=== PATIENT | male | born 1965 | race Caucasian/White ===

== ENCOUNTER 2021-01-23 08:24 | Emergency (ER) | payer MEDICARE ==
[~2021-01-23] VITALS: Ht 182.9 cm; Wt 138.0 kg
[2021-01-23] MEDS ORDERED: SODIUM CHLORIDE 0.9% 1,000ML IVBOLUS ONE (08:30)
[2021-01-23 08:48] LABS: BASOPHILS % (AUTO) 1 % (0-1); EOSINOPHILS % (AUTO) 2 % (1-7); LYMPHOCYTES % (AUTO) 16 % (22-44); MEAN CORPUSCULAR HEMOGLOBIN 27.2 pg (27.5-34.5); MEAN CORPUSCULAR HGB CONC 32.9 g/dL (33.2-36.2); MEAN PLATELET VOLUME 9.7 fL (7.4-10.4); MONOCYTES % (AUTO) 9 % (2-9); NEUTROPHILS % (AUTO) 74 % (42-75); PLATELET COUNT 218 x10^3/uL (130-400); RED BLOOD COUNT 5.54 x10^6/uL (4.38-5.82); RED CELL DISTRIBUTION WIDTH 15.8 % (9.4-14.8)
[2021-01-23 08:50] LABS: MD NO
[2021-01-23] MEDS ORDERED: PLEASE ENTER ALLERGIES MC SCH (09:00)
[2021-01-23 09:01] LABS: ALANINE AMINOTRANSFERASE 65 U/L (12-78); ALBUMIN 3.8 g/dL (3.4-5.0); ANION GAP 7 mmol/L (5-15); CALCIUM 8.7 mg/dL (8.5-10.1); CHLORIDE 104 mmol/L (98-107)
[2021-01-23 09:02] LABS: SALICYLATE LEVEL < 1.7 mg/dL (2.8-20.0)
--- NOTE | 2021-01-23 09:02 | NUR ---
PT CONVERSES BUT DROWSY AND FALLS ASLEEP FREQUENTLY. PLACED ON OXYGEN. WILL CONTINUE TO MONITOR
[2021-01-23 09:05] LABS: ALKALINE PHOSPHATASE 118 U/L (45-117); BILIRUBIN,TOTAL 0.6 mg/dL (0.2-1.0); TOTAL PROTEIN 8.5 g/dL (6.4-8.2)
--- NOTE | 2021-01-23 09:12 | NUR ---
PT REMAINS DROWSY BUT AROUSABLE. IV FLUIDS INFUSING. CONTINUE TO MONITOR.
--- NOTE | 2021-01-23 09:42 | NUR ---
REMAINS DROWSY. SLEEPING WITH NECK BENT FORWARD BUT MAINTAINING AIRWAY. WILL CONTINUE TO MONITOR
--- NOTE | 2021-01-23 10:00 | NUR ---
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 PT REMOVED BP CUFF. PT STATES "NO ONE IS BRINGING ME ANYTHING TO DRINK" DISCUSSED THAT MD MAY NOT WANT HIM TO HAVE ANYTHING TO DRINK AT THIS TIME. PT RETURNED TO [facility] WITHOUT INCIDENCE.
--- NOTE | 2021-01-23 10:45 | NUR ---
PT UOB WITH ASSISTANCE AND USED URINAL TO GIVE SAMPLE. PT LESS DROWSY AT THIS TIME. WILL CONTINUE TO MONITOR
[2021-01-23 11:00] VITALS: BP 130/84
--- NOTE | 2021-01-23 11:18 | NUR ---
WHEN PT FALLS BACK TO SLEEP OXYGEN SATURATION DROPS. WITHOUT OXYGEN DROPS TO 86 PERCENT. PROVIDER MADE AWARE AND PLACED BACK ON OXYGEN
--- NOTE | 2021-01-23 13:00 | NUR ---
PT AMBULATED WITHOUT ASSISTANCE A SHORT DISTANCE. OXYGEN SATURATION NOTED TO BE 95 PERCENT ON RA WHILE AMBULATING.
--- NOTE | 2021-01-23 13:52 | NUR ---
DC INSTRUCTIONS REVIEWED
== END 2021-01-23 13:54 | disposition home or self-care (01) ==
LOC: ED 09:39
DX: T40.2X1A Poisoning by other opioids, accidental (unintentional), initial encounter (principal); R09.02 Hypoxemia; R94.31 Abnormal electrocardiogram [ECG] [EKG]; Y92.9 Unspecified place or not applicable
CPT/HCPCS: 36415; 71045; 80053; 80299; 80320; 82140; 85025; 93005; 96360; 99285; J7030; 80329; G0480